=== PATIENT | male | born 1965 | race Caucasian/White ===

== ENCOUNTER 2020-01-16 18:25 | Emergency (ER) | payer SELFPAY ==
[~2020-01-16] VITALS: Ht 177.8 cm; Wt 70.9 kg
[2020-01-16 18:53] LABS: BASO # 0.1 10^3/uL (0.0-0.2); BASO % 1.5 % (0.0-1.0); EOS # 0.2 10^3/uL (0.0-0.5); EOS % 2.2 % (0.0-3.0); HEMATOCRIT 49.3 % (42.0-52.0); HEMOGLOBIN 17.1 g/dl (13.5-17.5); LYMPH # 2.3 10^3/uL (1.5-5.0); MEAN CORPUSCULAR HEMOGLOBIN 28.5 pg (27.0-33.0); MEAN CORPUSCULAR HGB CONC 34.7 g/dl (32.0-36.5); MONO # 0.6 10^3/uL (0.0-0.8); MONO % 7.5 % (0.0-5.0); NEUTROPHILS # 4.2 10^3/uL (1.5-8.5); NEUTROPHILS % 57.4 % (36.0-66.0); PLATELET COUNT, AUTOMATED 257 10^3/uL (150-450); RED BLOOD COUNT 6.01 10^6/uL (4.30-6.10); WHITE BLOOD COUNT 7.3 10^3/uL (4.0-10.0)
[2020-01-16] MEDS ORDERED: GI COCKTAIL 50ML BTL(HYOSCYAMINE/MAALOX/LIDOCAINE VISCOUS)(1:3:1) PO ONE (19:00)
[2020-01-16 19:30] LABS: ALBUMIN 3.8 GM/DL (3.2-5.2); ALT/SGPT 17 U/L (12-78); BILIRUBIN,DIRECT 0.1 MG/DL (0.0-0.2); BILIRUBIN,TOTAL 0.6 MG/DL (0.2-1.0); BLOOD UREA NITROGEN 14 MG/DL (7-18); CARBON DIOXIDE LEVEL 25 MEQ/L (21-32); CHLORIDE LEVEL 107 MEQ/L (98-107); CK-MB VALUE MASS < 1.0 NG/ML (<3.6); CPK CREATINE PHOSPHOKINASE 38 U/L (39-308); CREATININE FOR GFR 1.13 MG/DL (0.70-1.30); GLOMERULAR FILTRATION RATE > 60.0 (>56); GLUCOSE, FASTING 97 MG/DL (70-100); LIPASE 72 U/L (73-393); MB/CK RELATIVE INDEX 2.63 (< OR =4); POTASSIUM SERUM 3.9 MEQ/L (3.5-5.1); SODIUM LEVEL 137 MEQ/L (136-145); TOTAL PROTEIN 7.3 GM/DL (6.4-8.2); TROPONIN I < 0.02 NG/ML (< 0.10)
[2020-01-16] MEDS ORDERED: PROT1TAB2 PO (21:22)
[2020-01-16] MEDS ORDERED: SUCR1SS PO (21:22)
[2020-01-16 21:30] VITALS: BP 145/78
--- NOTE | 2020-01-17 03:51 | REP ---
REASON: Chest pain. PRIORS: None. The technique utilized in obtaining the radiograph has magnified the cardiac silhouette and accentuated the interstitial markings. The CP angles were not included on the radiographs, although two radiographs were obtained. The lung steel are otherwise clear, and the heart is not enlarged. The osseous structures are normal. IMPRESSION: Limited portable exam showing no evidence of acute disease. Consider repeat exam to include all of the lung bases. Electronically Signed by Dino Mckee DO 01/17/2020 08:40 A
--- NOTE | 2020-01-17 09:50 | ECGEPIP ---
[facility] - ED Test Date: 2020-01-16 Pat Name: DARIUS GREY Department: Room: - Gender: Male [employer] Driver: FABIENNE : 1965 Requested By: JOE DARBY Order Number: [id number] Reading MD: Alejandro Mike Measurements Intervals [place] Rate: 86 P: 70 UT: 140 QRS: 48 QRSD: 90 T: 61 QT: 340 QTc: 408 Interpretive Statements SINUS RHYTHM [address] ELEVATION, CONSIDER SEPTAL INFARCT NO PRIORS FOR COMPARISON Electronically Signed on 01-17-2020 9:49:53 EDT by Alejandro Mike
--- NOTE | 2020-01-17 20:21 | ECGEPIP ---
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
== END 2020-01-16 21:39 | disposition home or self-care (01) ==
LOC: M ED 18:25
DX: K29.20 Alcoholic gastritis without bleeding (principal); F17.210 Nicotine dependence, cigarettes, uncomplicated; F14.10 Cocaine abuse, uncomplicated